=== PATIENT | female | born 1945 | race Hispanic/Latino ===

== ENCOUNTER → 2024-08-05 | Outpatient (CLI) | payer OTHER, MEDICARE | END | disposition home or self-care (01) | LOC: RAH 12:09 | PROVIDERS: ATTEND Internal Medicine | DX: I11.9 Hypertensive heart disease without heart failure (principal); R09.89 Other specified symptoms and signs involving the circulatory and respiratory systems | CPT/HCPCS: 93306 ==

== ENCOUNTER → 2024-09-27 | Outpatient (CLI) | payer OTHER, MEDICARE ==
--- NOTE | 2024-09-27 15:13 | HMCIMG ---
US VENOUS DOPPLER UNILATERAL REASON: edema, unspecified COMPARISON: None Technique: Right venous doppler ultrasound was performed with spectral analysis and color flow imaging technique. FINDINGS: There is a normal appearance of the common femoral, deep femoral, the profunda femoris and popliteal veins. Proximal calf veins appear normal as well. There is normal response to compression and augmentation. There is no evidence of deep venous thrombosis. IMPRESSION: Normal right lower extremity venous Doppler ultrasound.
== END | disposition home or self-care (01) ==
LOC: RAH 12:51
PROVIDERS: ATTEND Internal Medicine
DX: R60.9 Edema, unspecified (principal)
CPT/HCPCS: 93971

== ENCOUNTER → 2025-02-08 | Outpatient (CLI) | payer MEDICARE, OTHER ==
--- NOTE | 2025-02-08 11:23 | HMCIMG ---
DEXA BONE DENSITY SURVEY HISTORY: Osteoporosis COMPARISON: None FINDINGS: Bone densitometry study was performed. Bone mineral density of the lumbar spine is 0.992 gram per centimeter square which corresponds to a T score of -0.5 and a Z score of 2.3. Bone mineral density of the left hip is 0.85 grams per centimeter square which corresponds to a T score of -0.8 and a Z score of 1.3. IMPRESSION: 1. Normal bone mineral density of the lumbar spine and left hip.
== END | disposition home or self-care (01) ==
LOC: CANPRECLI → RAH 09:48
PROVIDERS: ATTEND Internal Medicine
DX: M81.0 Age-related osteoporosis without current pathological fracture (principal)
CPT/HCPCS: 77080

== ENCOUNTER → 2025-02-22 | Outpatient (CLI) | payer OTHER, MEDICARE ==
--- NOTE | 2025-02-22 11:27 | HMCIMG ---
Exam Type: US ABDOMINAL COMPLETE Clinical Information: GENERALIZED ABD PAIN Comparison: None Findings: Fatty liver infiltration with hepatomegaly. Liver length 18 cm. The gallbladder is surgically absent. No bile duct dilatation is noted. The common bile duct measures 6 mm. The right kidney measures 10 x 5 cm. The left kidney measures 11 x 4.5 cm. The kidneys show no hydronephrosis or calculi, masses or other abnormalities. Simple cyst right kidney. The pancreas is unremarkable. The spleen is unremarkable. The aorta and inferior vena cava show no significant abnormalities. IMPRESSION: Status post cholecystectomy. Hepatomegaly and fatty liver infiltration. Otherwise unremarkable exam.
== END | disposition home or self-care (01) ==
LOC: RAH 09:22
PROVIDERS: ATTEND Internal Medicine
DX: K76.0 Fatty (change of) liver, not elsewhere classified (principal); R16.0 Hepatomegaly, not elsewhere classified; R10.84 Generalized abdominal pain; Z90.49 Acquired absence of other specified parts of digestive tract
CPT/HCPCS: 76700

== ENCOUNTER → 2025-05-12 | Outpatient (CLI) | payer OTHER, MEDICAID ==
--- NOTE | 2025-05-13 07:24 | HMCIMG ---
EXAMINATION: SPECTRAL DOPPLER ULTRASOUND EXAMINATION OF THE RIGHT LOWER EXTREMITY VEINS. CLINICAL HISTORY: Pain. COMPARISON: Right lower extremity venous doppler dated 09/27/2024. TECHNIQUE: Real-time ultrasound scan of the veins of the right lower extremity with color Doppler flow, spectral waveform analysis and compression. FINDINGS: DEEP VEINS: The common femoral, superficial femoral, deep femoral, popliteal, and posterior tibial veins are echolucent and compressible. There is normal color Doppler flow throughout. The visualized calf veins appear patent. SUPERFICIAL VEINS: The visualized greater saphenous veins are patent and compressible. SOFT TISSUES: No popliteal fossa cyst. There is mild subcutaneous edema in the leg. IMPRESSION: No deep venous thrombosis evident in the right lower extremity. Mild subcutaneous edema in the leg. No significant interval changes. /Angelo
== END | disposition home or self-care (01) ==
LOC: RAH 10:40
PROVIDERS: ATTEND Internal Medicine
DX: R60.0 Localized edema (principal); M79.661 Pain in right lower leg; R25.2 Cramp and spasm
CPT/HCPCS: 93971

== ENCOUNTER → 2025-10-13 | Outpatient (CLI) | payer OTHER, MEDICAID ==
--- NOTE | 2025-10-15 01:00 | HMCIMG ---
EXAM: XR Pelvis and Right Hip, 1 View. CLINICAL HISTORY: Pain in right hip. COMPARISON: None provided. FINDINGS: BONES: Subchondral sclerosis in the right hip. Subchondral sclerosis in bilateral SI joints. No acute fracture. Generalized mildly reduced bone mineralization. JOINTS: Asymmetrical joint space narrowing in right hip and left SI joint. No dislocation. SOFT TISSUES: The soft tissues are unremarkable. IMPRESSION: 1. Osteoarthritis of the right hip. 2. Osteoarthritis of the bilateral sacroiliac joints. 3. Generalized mildly reduced bone mineralization. /[place]iram
--- NOTE | 2025-10-15 01:00 | HMCIMG ---
EXAM: CR RIGHT FEMUR, 2 VIEWS CLINICAL HISTORY: Right hip pain. COMPARISON: None provided TECHNIQUE: AP and lateral views of the right femur. FINDINGS: Bones: No acute fracture identified along the femoral shaft, distal femur, or proximal femur. The femoral neck and head are intact with no visible displaced fracture. Normal alignment of the femur; no evidence of dislocation at the hip or knee joint. Bone cortex appears smooth and continuous. No focal lytic or sclerotic lesions seen. No periosteal reaction or suspicious bone remodeling. The bones appear osteopenic. Joints: Mild degenerative changes noted at the knee joint, with joint space narrowing and small osteophytes. Soft tissues: Diffuse edema of the subcutaneous tissues is present. No abnormal calcification. IMPRESSION: 1. No acute fracture or dislocation of the right femur. 2. Mild degenerative osteoarthritis of the right knee. 3. Osteopenia with diffuse subcutaneous edema of the thigh. /[place]
== END | disposition home or self-care (01) ==
LOC: RAH 11:43
PROVIDERS: ATTEND Internal Medicine
DX: M16.11 Unilateral primary osteoarthritis, right hip (principal); M17.11 Unilateral primary osteoarthritis, right knee; M46.1 Sacroiliitis, not elsewhere classified; M25.761 Osteophyte, right knee; M25.851 Other specified joint disorders, right hip; M85.851 Other specified disorders of bone density and structure, right thigh; R60.0 Localized edema; M25.551 Pain in right hip
CPT/HCPCS: 72170; 73552

== ENCOUNTER → 2025-10-18 | Outpatient (CLI) | payer OTHER, MEDICAID ==
--- NOTE | 2025-10-19 01:21 | HMCIMG ---
EXAM: CT Pelvis without Intravenous Contrast Clinical History: Other intra-abdominal and pelvic swelling, mass, or lump. Technique: Axial non-contrast CT images of the pelvis were obtained with multiplanar reconstructions. Radiation dose: CTDIvol 23.1 mGy, DLP 975.80 mGycm. Comparison: Right femur and pelvic radiographs dated October 13, 2025. Findings: Bones: Sclerotic foci are present in both iliac bones, consistent with benign enostoses. The visualized bones appear osteopenic. Degenerative changes are present in the visualized lumbar spine and both hip joints. There is grade I anterolisthesis of L4 over L5, consistent with Meyerding grade I. No aggressive osseous lesion or cortical destruction is identified. Soft Tissues: A large hypodense soft tissue mass is partially visualized arising from the extensor compartment muscles of the right proximal thigh. The lesion demonstrates an average attenuation value of approximately 20 Hounsfield units and measures approximately 12 15 cm in maximum axial dimensions. The craniocaudal extent cannot be accurately assessed due to incomplete visualization within the available field of view. No internal calcifications or macroscopic fat density are identified. The mass infiltrates the extensor compartment musculature without evidence of adjacent bone invasion. Genitourinary: A hypodense lesion is present in the visualized lower pole of the right kidney measuring approximately 4.0 5.3 cm, with an average attenuation value of approximately 7 Hounsfield units, compatible with a simple renal cyst (Bosniak category I). The uterus is surgically absent. The adnexa are unremarkable. Gastrointestinal: Colonic diverticula are present without associated wall thickening or pericolonic fat stranding, consistent with uncomplicated diverticulosis. Vascular: The abdominal aorta demonstrates atheromatous calcifications within the visualized extent. Impression: * Large partially visualized intramuscular soft tissue mass involving the extensor compartment of the right proximal thigh. Given its size, intramuscular location, and incomplete characterization on this examination, further evaluation with contrast-enhanced MRI of the right thigh covering the entire lesion is recommended to assess extent and internal characteristics, with soft tissue cystic neoplasm and sarcoma included in the differential diagnosis. * Right renal lower pole simple cyst, Bosniak category I. * Uncomplicated colonic diverticulosis. * Osteopenia with degenerative changes of the lumbar spine and bilateral hips, including Meyerding grade I anterolisthesis of L4 over L5. * Comparison is made with right femur and pelvic radiographs dated October 13, 2025, which demonstrated a soft tissue mass in the right proximal thigh corresponding to the currently visualized lesion. /[place]
== END | disposition home or self-care (01) ==
LOC: RAH 10:37
PROVIDERS: ATTEND Internal Medicine
DX: N28.1 Cyst of kidney, acquired (principal); R19.09 Other intra-abdominal and pelvic swelling, mass and lump; M25.551 Pain in right hip; K57.30 Diverticulosis of large intestine without perforation or abscess without bleeding; M47.816 Spondylosis without myelopathy or radiculopathy, lumbar region; M85.88 Other specified disorders of bone density and structure, other site; M43.16 Spondylolisthesis, lumbar region; Z90.710 Acquired absence of both cervix and uterus
CPT/HCPCS: 72192